=== PATIENT | female | born 1975 | race Asian ===

== ENCOUNTER → 2016-08-24 | Outpatient (CLI) | payer OTHER | LOC: M OUTALCOH 13:57 | PROVIDERS: ATTEND Psychiatry & Neurology Psychiatry | DX: Z03.89 Encounter for observation for other suspected diseases and conditions ruled out (principal) ==

== ENCOUNTER 2016-11-23 17:31 | Emergency (ER) | payer OTHER ==
[~2016-11-23] VITALS: Ht 172.7 cm; Wt 76.0 kg
[2016-11-23] MEDS ORDERED: AMOX875T (17:53)
[2016-11-23] MEDS ORDERED: IBUP-1022 PO (17:53)
[2016-11-23] MEDS ORDERED: ZOLP10TA2 (17:53)
[2016-11-23] MEDS ORDERED: SPIR50TA2 (17:53)
[2016-11-23] MEDS ORDERED: ATEN25TA (17:53)
[2016-11-23] MEDS ORDERED: CLINDAMYCIN 900 MG in APPROPRIATE DILUENT 1 EA IV ONE (20:00)
[2016-11-23 20:14] LABS: BASO # 0.1 K/mm3 (0.0-0.2); BASO % 0.5 % (0.0-1.0); EOS # 0.5 K/mm3 (0.0-0.50); EOS % 3.1 % (0.0-3.0); LARGE UNSTAINED CELL # 0.2 K/mm3 (0.0-0.4); LARGE UNSTAINED CELL % 1.1 % (0.0-4.0); LYMPH # 2.8 K/mm3 (1.5-4.5); MEAN CORPUSCULAR HEMOGLOBIN 32.4 pg (27.0-33.0); MEAN CORPUSCULAR VOLUME 95.1 fl (80.0-96.0); MONO # 0.8 K/mm3 (0.0-0.8); MONO % 4.6 % (0.0-5.0); NEUTROPHILS # 12.2 K/mm3 (1.8-7.7); NEUTROPHILS % 73.7 % (36.0-66.0); PLATELET COUNT, AUTOMATED 310 k/mm3 (150-450); WHITE BLOOD COUNT 16.5 K/mm3 (4.0-10.0)
[2016-11-23 20:36] LABS: ERYTHROCYTE SEDIMENTATION RATE 33 mm/hr (0-20)
[2016-11-23 20:38] LABS: ANION GAP 4 MEQ/L (8-16); BLOOD UREA NITROGEN 8 MG/DL (7-18); CALCIUM LEVEL 8.5 MG/DL (8.5-10.1); CARBON DIOXIDE LEVEL 25 MEQ/L (21-32); CHLORIDE LEVEL 108 MEQ/L (98-107); CREATININE FOR GFR 0.81 MG/DL (0.55-1.02); GLOMERULAR FILTRATION RATE > 60.0 (>58); GLUCOSE, FASTING 89 MG/DL (70-105); SODIUM LEVEL 137 MEQ/L (136-145)
[2016-11-23] MEDS ORDERED: ISOVUE-370 76% 100ML VIAL (Q9967) As Ordered ONE (20:56)
--- NOTE | 2016-11-23 21:40 | REPUSA ---
Technique: Multiple axial CT images were obtained from the base of the skull to the upper thorax afte r administration of nonionic intravenous contrast. Coronal and sagittal reconstructions were also obt ained. Comparison: dental pain. Findings: The visualized paranasal sinuses are clear. The pterygopalatine fossa, pterygoid plates and pterygoid muscles are unremarkable. The mucosa of the naso- and oropharynx appears unremarkable. The hypopharynx and larynx show no pathology. The visualized osseous structures are intact. The airway i s patent. No focal mass is appreciated. There is no evidence of lymphadenopathy. The thyroid gland ap pears unremarkable. The superficial soft tissues are unremarkable. Vascular structures demonstrate no rmal caliber and contour. Impression: No acute abnormality demonstrated. No evidence of any periodontal abscess.
[2016-11-23] MEDS ORDERED: CLEO300C2 PO (21:45)
[2016-11-23] MEDS ORDERED: NORCO 5/325MG TABLET (BULK FOR ED) PO ONE (21:45)
[2016-11-23] MEDS ORDERED: NORCOTAB PO (21:45)
[2016-11-23 21:47] VITALS: BP 108/72
== END 2016-11-23 21:54 | disposition home or self-care (01) ==
LOC: M ED 18:57
DX: K04.7 Periapical abscess without sinus (principal); Z79.899 Other long term (current) drug therapy
CPT/HCPCS: 70491; 80048; 85025; 85652; 86140; 96374; 99283; Q9967

== ENCOUNTER → 2017-01-14 | Outpatient (REF) | payer OTHER ==
[~2017-01-14] MED LIST: AMOX875T; ATEN25TA; CLEO300C2 PO; IBUP-1022 PO; NORCOTAB PO; SPIR50TA2; ZOLP10TA2
== END ==
LOC: M LAB REF 17:36
PROVIDERS: ATTEND Advanced Practice Midwife
DX: Z12.4 Encounter for screening for malignant neoplasm of cervix (principal); R87.610 Atypical squamous cells of undetermined significance on cytologic smear of cervix (ASC-US)

== ENCOUNTER → 2017-02-10 | Outpatient (CLI) | payer OTHER ==
--- NOTE | 2017-02-15 09:08 | REPMRS ---
Patient History The patient states she had a clinical breast exam in January 2017. Family history of pancreatic cancer in father at age 50. Digital Mammo Screening Bilat: February 10, 2017 - Exam #: [id number] Bilateral CC and MLO view(s) were taken. Technologist: Faina Julio, Technologist No prior studies available for comparison. FINDINGS: There are scattered fibroglandular densities. There is no evidence of dominant mass, architectural distortion, or clustered microcalcification typical of malignancy. ASSESSMENT: BI-RADS/ACR category 1 mammogram. Negative. Recommendation Routine screening mammogram of both breasts in 1 year (for women over age 40). This mammogram was interpreted with the aid of an FDA-approved computer-aided dectection system. Electronically Signed By: Luis Barksdale MD 02/15/17 0972
== END ==
LOC: M RAD 13:23
PROVIDERS: ATTEND Advanced Practice Midwife
DX: Z12.31 Encounter for screening mammogram for malignant neoplasm of breast (principal)

== ENCOUNTER → 2017-12-21 | Outpatient (CLI) | payer OTHER | LOC: M RAD 14:10 | DX: N63.20 Unspecified lump in the left breast, unspecified quadrant (principal) | CPT/HCPCS: 76642 ==

== ENCOUNTER → 2018-01-11 | Outpatient (CLI) | payer OTHER ==
[2018-01-11 12:12] LABS: INR 0.93; PROTHROMBIN TIME 12.6 SECONDS (12.1-14.4)
[2018-01-11 12:13] LABS: PARTIAL THROMBOPLASTIN TIME 29.5 SECONDS (25.4-37.6)
== END ==
LOC: M LAB 11:20
DX: N63.0 Unspecified lump in unspecified breast (principal)
CPT/HCPCS: 85610

== ENCOUNTER → 2018-01-18 | Outpatient (CLI) | payer OTHER ==
[~2018-01-18] MED LIST changes: -AMOX875T; -ATEN25TA; -CLEO300C2 PO; -IBUP-1022 PO; +LIDOCAINE 1% MDV 20ML VIAL As Ordered; -NORCOTAB PO; -SPIR50TA2; -ZOLP10TA2
== END ==
LOC: M RADPRO 10:51
DX: N61.1 Abscess of the breast and nipple (principal); N63.42 Unspecified lump in left breast, subareolar
CPT/HCPCS: 19083

== ENCOUNTER → 2018-02-03 | Outpatient (REF) | payer OTHER ==
[2018-02-05 14:32] LABS: HPV HYBRID CAPTURE II Negative (Negative)
== END ==
LOC: M LAB REF 17:57
DX: Z12.4 Encounter for screening for malignant neoplasm of cervix (principal)
CPT/HCPCS: G0123

== ENCOUNTER 2018-02-04 10:42 | Emergency (ER) | payer OTHER ==
[2018-02-04] MEDS ORDERED: VANCOMYCIN 1000 MG/20 ML VIAL (J3370) IP (11:45)
[2018-02-04] MEDS ORDERED: VANCOMYCIN HCL 1,000 MG in IV FLUID PLACE HOLDER 1 EA IV (12:05)
[2018-02-04 12:10] LABS: BASO # 0.1 10^3/uL (0.0-0.2); BASO % 0.6 % (0.0-1.0); EOS # 0.2 10^3/uL (0.0-0.50); EOS % 1.7 % (0.0-3.0); HEMATOCRIT 41.1 % (36.0-47.0); IMMATURE GRANULOCYTE % 0.4 % (0-3.0); LYMPH # 1.7 10^3/uL (1.5-4.5); LYMPH % 15.5 % (24.0-44.0); MEAN CORPUSCULAR HEMOGLOBIN 31.4 pg (27.0-33.0); MEAN CORPUSCULAR HGB CONC 34.1 g/dl (32.0-36.5); MEAN CORPUSCULAR VOLUME 92.2 fl (80.0-96.0); MONO # 0.6 10^3/uL (0.0-0.8); MONO % 5.3 % (0.0-5.0); NEUTROPHILS # 8.3 10^3/uL (1.8-7.7); NEUTROPHILS % 76.5 % (36.0-66.0); PLATELET COUNT, AUTOMATED 307 10^3/uL (150-450); RED BLOOD COUNT 4.46 10^6/uL (4.00-5.40); RED CELL DISTRIBUTION WIDTH 12.2 % (11.5-14.5); WHITE BLOOD COUNT 10.9 10^3/uL (4.0-10.0)
[2018-02-04] MEDS: PIPERACILLIN/TAZOBACTAM SOD 3.375 GM in D5W MINI-BAG PLUS 50 ML IV (12:23)
[2018-02-04] MEDS: NS 1,000 ML IV (12:23)
[2018-02-04] MEDS: KETOROLAC 30 MG/ML VIAL (J1885) IV (12:23)
[2018-02-04 12:35] LABS: ANION GAP 9 MEQ/L (8-16); BLOOD UREA NITROGEN 9 MG/DL (7-18); CALCIUM LEVEL 9.1 MG/DL (8.5-10.1); CARBON DIOXIDE LEVEL 23 MEQ/L (21-32); CHLORIDE LEVEL 108 MEQ/L (98-107); CREATININE FOR GFR 0.76 MG/DL (0.55-1.30); GLOMERULAR FILTRATION RATE > 60.0 (>58); GLUCOSE, FASTING 90 MG/DL (70-100); POTASSIUM SERUM 4.1 MEQ/L (3.5-5.1); SODIUM LEVEL 140 MEQ/L (136-145)
[2018-02-04 12:38] LABS: LACTIC ACID SEPSIS PROTOCOL 0.8 MMOL/L (0.4-2.0)
[2018-02-04] MEDS: VANCOMYCIN HCL 1,000 MG, VIAL MATE ADAPTER 1 EACH in D5W 250 ML IV (12:44)
== END 2018-02-04 14:11 | disposition home or self-care (01) ==
LOC: M ED 10:42
DX: L76.82 Other postprocedural complications of skin and subcutaneous tissue (principal); F17.210 Nicotine dependence, cigarettes, uncomplicated; Z79.899 Other long term (current) drug therapy
CPT/HCPCS: J3370

== ENCOUNTER 2021-07-05 16:07 | Emergency (ER) | payer OTHER ==
[~2021-07-05] VITALS: Ht 172.7 cm; Wt 72.8 kg
[2021-07-05 16:07] VITALS: BP 131/85
[~2021-07-05 16:07] MED LIST changes: +ALPR0.25 PO; +AMOX-CLAV PO; +AMOX875T; +ATEN25TA PO; +BACT800T5 PO; +CLEO300C2 PO; +HYDR-3715 PO; +IBUP-1022 PO; +KETO10TAB PO; -LIDOCAINE 1% MDV 20ML VIAL As Ordered; +SPIR50TA4; +ZOLP10TA2
[2021-07-05] MEDS ORDERED: BUPR150T12 (16:14)
[2021-07-05] MEDS ORDERED: NS 1,000 ML IV ONE (16:30)
[2021-07-05] MEDS ORDERED: KETOROLAC 30 MG/ML 1ML VIAL IV ONE (16:30)
[2021-07-05] MEDS ORDERED: GI COCKTAIL 50ML BTL(HYOSCYAMINE/MAALOX/LIDOCAINE VISCOUS)(1:3:1) PO ONE (16:30)
[2021-07-05 18:13] LABS: BASO % 0.5 % (0.0-1.0); EOS # 0.3 10^3/uL (0.0-0.5); EOS % 3.1 % (0.0-3.0); HEMATOCRIT 43.9 % (36.0-47.0); HEMOGLOBIN 14.8 g/dl (12.0-15.5); MEAN CORPUSCULAR HEMOGLOBIN 30.5 pg (27.0-33.0); MEAN CORPUSCULAR HGB CONC 33.7 g/dl (32.0-36.5); MEAN CORPUSCULAR VOLUME 90.5 fl (80.0-96.0); MONO # 0.5 10^3/uL (0.0-0.8); MONO % 5.5 % (2.0-8.0); NEUTROPHILS # 4.6 10^3/uL (1.5-8.5); NEUTROPHILS % 54.8 % (36.0-66.0); PLATELET COUNT, AUTOMATED 245 10^3/uL (150-450); RED BLOOD COUNT 4.85 10^6/uL (4.00-5.40); WHITE BLOOD COUNT 8.4 10^3/uL (4.0-10.0)
[2021-07-05] MEDS ORDERED: NICO1DIS12 TD (18:18)
[2021-07-05 18:36] LABS: CK-MB VALUE MASS < 1.0 NG/ML (<3.6); CPK CREATINE PHOSPHOKINASE 115 U/L (26-192); MB/CK RELATIVE INDEX 0.87 (< OR =4)
[2021-07-05 19:05] LABS: BLOOD UREA NITROGEN 12 MG/DL (7-18); CALCIUM LEVEL 9.3 MG/DL (8.5-10.1); CARBON DIOXIDE LEVEL 26 MEQ/L (21-32); CHLORIDE LEVEL 109 MEQ/L (98-107); CREATININE FOR GFR 0.84 MG/DL (0.55-1.30); GLOMERULAR FILTRATION RATE > 60.0 (>58); GLUCOSE, FASTING 89 MG/DL (70-100); POTASSIUM SERUM 4.3 MEQ/L (3.5-5.1); SODIUM LEVEL 138 MEQ/L (136-145)
== END 2021-07-05 20:48 | disposition home or self-care (01) ==
LOC: M ED 16:07
DX: R07.89 Other chest pain (principal); M79.7 Fibromyalgia; Z87.891 Personal history of nicotine dependence; Z79.899 Other long term (current) drug therapy
CPT/HCPCS: 71045; 80048; 82550; 82553; 84484; 85025; 93005; 93041; 94760; 96361; 96374; 99284; J1885

== ENCOUNTER 2022-09-22 21:22 | Emergency (ER) | payer OTHER, SELFPAY ==
[~2022-09-22] VITALS: Ht 172.7 cm; Wt 75.0 kg
[2022-09-22 21:22] VITALS: BP 134/65
[~2022-09-22 21:22] MED LIST changes: +BUPR150T12; +NICO1DIS12 TD
[2022-09-22] MEDS ORDERED: ESTRADIOL (21:32)
[2022-09-22] MEDS ORDERED: PROG1CAP8 (21:32)
[2022-09-22] MEDS ORDERED: AMOX875T2 (21:32)
== END 2022-09-23 00:08 | disposition left against medical advice (07) ==
LOC: M ED 21:22
DX: Z53.21 Procedure and treatment not carried out due to patient leaving prior to being seen by health care provider (principal)